=== PATIENT | female | born 1975 | race Caucasian/White ===

== ENCOUNTER → 2019-12-27 | Outpatient (CLI) | payer OTHER ==
[2015-10-19 21:18] VITALS: BP 143/79
[~2019-12-27] MED LIST: ACET325T9 PO; NALT1TAB PO
--- NOTE | 2019-12-27 15:33 | RAD ---
EXAM: 1. BILATERAL DIGITAL DIAGNOSTIC MAMMOGRAPHY. 2. RIGHT BREAST ULTRASOUND. HISTORY: Right breast palpable focus and tenderness. TECHNIQUE: Bilateral full field digital images were obtained in CC and MLO projections. Computer-aided detection was applied. Sonography of the right upper outer breast and axilla was also performed. COMPARISON: 12/06/2014. COMPOSITION: B. There are scattered areas of fibroglandular density. FINDINGS: The site of concern is more superolateral in the included mammographic [id number]. On today's sonography at the site of concern, only normal subcutaneous tissues are identified. No enlarged axillary lymph nodes are other abnormality is seen. Mammographically, a nodule or parenchymal island superolaterally is stable. There are no suspicious masses, microcalcifications or architectural distortion. The parenchymal pattern is stable. BI-RADS CATEGORY 2: Benign. RECOMMENDATION: 1. Ongoing clinical follow-up of palpable or tender foci. 2. Routine screening mammography in one year. If mammography demonstrates dense breast tissue (heterogenously dense or extremely dense, category C or D), which could hide abnormalities, and if other risk factors for breast cancer have been identified, supplemental screening tests that may be suggested by the ordering physician may be of benefit. Dense breast tissue, in and of itself, is a relatively common condition. Therefore, this information is not provided to cause undue concern, but rather to raise awareness and to promote discussion with the referring physician regarding the presence of other risk factors, in addition to dense breast tissue. The results of this mammography examination is provided to the patient and referring physician. The patient should contact their referring physician if any questions or concerns exist regarding this report. PQRS compliance statement - Patient information was entered into a reminder system with a target due date for the next mammogram. "Our facility is accredited by the [employer]amm[employer]." Electronically signed by: Rekha James MD (12/27/2019 3:30 PM) [email or web address]
== END | disposition home or self-care (01) ==
LOC: MAMMO 13:43
PROVIDERS: ATTEND Nurse Practitioner Family
DX: N63.10 Unspecified lump in the right breast, unspecified quadrant (principal); R92.2 Inconclusive mammogram
CPT/HCPCS: 76641; 77066

== ENCOUNTER → 2021-07-17 | Outpatient (CLI) | payer OTHER ==
[2015-10-19 21:18] VITALS: BP 143/79
--- NOTE | 2021-07-17 16:13 | RAD ---
INDICATION: 45 years of age asymptomatic female patient presents for screening mammography. TECHNIQUE: Full field craniocaudal and mediolateral oblique images of both breasts were obtained usi ng digital technique with tomosynthesis and also analyzed with computer-aided detection software. COMPARISON: Prior mammographic imaging 12/27/2019, 12/06/2014 BREAST COMPOSITION: Category B: There are scattered fibroglandular densities. FINDINGS: Benign calcifications are present. Approximately 7 cm from the nipple there is a focal asymmetry in the slightly lateral right breast. N o suspicious right breast microcalcification or architectural distortion. No suspicious masses, microcalcifications or architectural distortion is present to suggest malignanc y in the left breast. The visualized axillae are unremarkable. IMPRESSION: Right breast focal asymmetry, findings for which additional imaging is advised. RECOMMENDATION: The patient will be contacted to return for additional imaging and a supplemental rep ort will follow. BIRADS 0: INCOMPLETE - NEED ADDITIONAL IMAGING EVALUATION AND/OR PRIOR MAMMOGRAMS FOR COMPARISON. This study was interpreted with the benefit of Computerized Aided Detection (CAD). Patient information is entered into the reminder system with a target due date for the next screening mammogram. Mammography is the most sensitive method for finding small breast cancers, but it does not detect the m all and is not a substitute for careful clinical examination. A negative mammogram does not negate a clinically suspicious finding and should not result in delay in biopsying a clinically suspicious a bnormality. "Our facility is accredited by the [employer]ammography [employer]." Electronically signed by: Harry Torres MD (07/17/2021 4:10 PM) [email or web address]
== END ==
LOC: MAMMO 08:01
PROVIDERS: ATTEND Nurse Practitioner Gerontology
DX: Z12.31 Encounter for screening mammogram for malignant neoplasm of breast (principal)
CPT/HCPCS: 77063; 77067

== ENCOUNTER → 2021-07-31 | Outpatient (CLI) | payer OTHER ==
[2015-10-19 21:18] VITALS: BP 143/79
--- NOTE | 2021-07-31 16:01 | RAD ---
[facility] 07/31/2021 3:26 PM INDICATION: Right breast focal asymmetry. COMPARISON: Mammogram 07/17/2021 TECHNIQUE: Spot compression CC and MLO views of the right breast were obtained as well as a full fiel d true lateral. FINDINGS: No residual focal asymmetry upon spot compression. No suspicious masses, microcalcifications or areas of architectural distortion. IMPRESSION: Negative right mammogram. BI-RADS category: 1; Negative Recommendations: Recommend annual screening mammography in one year. Electronically signed by: Beatriz Wall MD (07/31/2021 3:59 PM) [email or web address]
== END ==
LOC: MAMMO 14:54
PROVIDERS: ATTEND Nurse Practitioner Gerontology
DX: R92.8 Other abnormal and inconclusive findings on diagnostic imaging of breast (principal)
CPT/HCPCS: 77065